=== PATIENT | male | born 1975 | race Caucasian/White ===

== ENCOUNTER 2018-04-16 08:41 | Emergency (ER) | payer OTHER ==
[2018-04-16 09:14] VITALS: TEMP 99.3
[2018-04-16 11:01] VITALS: RESP 18
--- NOTE | 2018-04-16 11:42 | ED PDOC ---
Arrival/HPI - General Chief Complaint: Upper Extremity Problem/Injury Time Seen by Provider: 04/16/18 11:22 Historian: Patient - History of Present Illness Narrative History of Present Illness (Text): 04/16/18 11:42 You were treated in the ED today for residual pain to right shoulder, right chest wall discomfort, little discomfort to right wrist s/p handcuffed by police 2 days ago, otherwise without any head injury, spine discomfort, nausea/ vomiting/headache/dizziness/difficulty breathing/chest pain/abdomen pain/ numbness/tingling/loss of limb function/pain with urination or any other complaints. Time/Duration: < week (2 days) Symptom Onset: Gradual Symptom Course: Unchanged Quality: Aching Activities at Onset: Other (handcuffed) Context: Other (handcuffed by [employer]) Past Medical History - Provider Review Nursing Documentation Reviewed: Yes - Infectious Disease Hx of Infectious Diseases: None - Cardiac Hx Cardiac Disorders: No - Psychiatric Hx Substance Use: Yes - Anesthesia Hx Anesthesia: No Family/Social History - Physician Review Nursing Documentation Reviewed: Yes Family/Social History: No Known Family HX Smoking Status: Current Some Days Smoker Hx Alcohol Use: Yes Frequency of alcohol use: Socially Hx Substance Use: Yes Substance used: marijuana Allergies/Home Meds Allergies/Adverse Reactions: Allergies No Known Allergies Allergy (Verified 04/16/18 09:14) Review of Systems - Physician Review All systems were reviewed & negative as marked: Yes - Review of Systems Constitutional: Normal Eyes: Normal ENT: Normal Respiratory: Normal Cardiovascular: Other (right rib wall discomfort) Gastrointestinal: Normal. absent: Abdominal Pain, Diarrhea, Nausea, Vomiting Genitourinary Male: Normal. absent: Dysuria Musculoskeletal: Other (right shoulder and right wrist discomfort). absent: Back Pain Skin: Normal Neurological: Normal. absent: Dizziness Endocrine: Normal Hemo/Lymphatic: Normal Psychiatric: Normal Physical Exam Vital Signs Reviewed: Yes Vital Signs Temp Pulse Resp BP Pulse Ox 04/16/18 14:14 74 18 125/70 97 04/16/18 12:29 81 18 128/79 97 04/16/18 11:00 89 18 132/86 97 04/16/18 09:10 99.3 F 96 H 16 135/91 H 98 Temperature: Afebrile Blood Pressure: Hypertensive Pulse: Tachycardic Respiratory Rate: Normal Appearance: Positive for: Well-Appearing, Non-Toxic, Comfortable Pain Distress: None Mental Status: Positive for: Alert and Oriented X 3 - Systems Exam Head: Present: Atraumatic, Normocephalic Pupils: Present: PERRL Extroacular Muscles: Present: EOMI Conjunctiva: Present: Normal Mouth: Present: Moist Mucous Membranes Neck: Present: Normal Range of Motion Respiratory/Chest: Present: Clear to Auscultation, Good Air Exchange. No: Respiratory Distress, Accessory Muscle Use Cardiovascular: Present: Regular Rate and Rhythm, Normal S1, S2, Other (Right chest wall discomfort). No: Murmurs Abdomen: No: Tenderness, Distention, Peritoneal Signs Back: Present: Normal Inspection. No: Midline Tenderness, Paraspinal Tenderness Upper Extremity: Present: Tenderness (right shoulder tenderness otherwise no tenderness to remaining part of the hand. ). No: Cyanosis, Edema Lower Extremity: Present: Normal Inspection. No: Edema Neurological: Present: GCS=15, CN II-XII Intact, Speech Normal Skin: Present: Warm, Dry, Normal Color. No: Rashes Psychiatric: Present: Alert, Oriented x 3, Normal Insight, Normal Concentration Medical Decision Making ED Course and Treatment: 04/16/18 11:36 Impression: You were treated in the ED today for residual pain to right shoulder, right chest wall discomfort, little discomfort to right wrist s/p handcuffed by police 2 days ago, otherwise without any head injury, spine discomfort, nausea/ vomiting/headache/dizziness/difficulty breathing/chest pain/abdomen pain/ numbness/tingling/loss of limb function/pain with urination or any other complaints. You were otherwise breathing easily, smiling, good strength/ sensation, walking easily, clear lungs, no abdomen tenderness, right shoulder/ right chest wall discomfort, no tenderness to right wrist/hand and otherwise warm/sensation/pink/good cap refill/good radial pulses, but no fever temp 99.3, mild tachycardia 96 , stable breathing rate 16, excellent oxygen level 98 % room air, elevated blood pressure 135/91 which we recommend repeat in 2-3 days primary care office to determine further treatment, right shoulder xray no evidence of acute fracture or dislocation, rib series unremarkable, motrin, observation done in the ED with improvement, had a long discussion and you didn' t want any xrays of the right hand/wrist or any other area, counselled to rest and use heating pads for muscle relief and thus discharged home. 1. Recommend tylenol or motrin as directed for mild pain. 2. Recommend flexeril as directed for muscle breakthrough pain and don't work/drive/drink alcohol when using. 3. 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 4. If any worsening pain, fever, chills, nausea, vomiting, difficulty breathing, numbness , loss of limb function, pain with urination or any medical condition then return to the ED. Progress Note: 04/16/18 13:29 X-ray of right shoulder reviewed by radiologist, shows: FINDINGS: BONES: No evidence of acute displaced fracture nor dislocation. The osseous structures appear intact. JOINTS: Mild degenerative osteoarthritis right acromioclavicular and to a lesser degree right glenohumeral joints. . SOFT TISSUES: Normal. OTHER FINDINGS: None. IMPRESSION: No evidence of acute displaced fracture nor dislocation. Minor degenerative osteoarthritis as above 04/16/18 13:56 X-ray of Ribs reviewed by radiologist, shows: FINDINGS: RIGHT RIBS: No fracture or focal lesion visualized. LUNGS: Clear. PLEURA: No pneumothorax or pleural fluid. CARDIOVASCULAR: Normal sized heart. No pulmonary vascular congestion. OTHER FINDINGS: None. IMPRESSION: Unremarkable radiographs of the chest and right ribs. No right rib fracture. 04/16/18 14:21 Reassessment Condition: Re-examined, Improved - RAD Interpretation Radiology Orders: 04/16/18 11:35 SHOULDER RIGHT [RAD] Stat 04/16/18 11:36 RIBS RIGHT & PA CHEST [RAD] Stat Peripheral Equipment Operator: Radiologist - Medication Orders Current Medication Orders: Discontinued Medications Ibuprofen (Motrin Tab) 800 mg PO STAT STA Stop: 04/16/18 11:38 Last Admin: 04/16/18 11:53 Dose: 800 mg - Scribe Statement The provider has reviewed the documentation as recorded by the Scribe Jenifer Perry. All medical record entries made by the Scribe were at my direction and personally dictated by me. I have reviewed the chart and agree that the record accurately reflects my personal performance of the history, physical exam, medical decision making, and the department course for this patient. I have also personally directed, reviewed, and agree with the discharge instructions and disposition. Disposition/Present on Arrival - Present on Arrival Any Indicators Present on Arrival: No History of DVT/PE: No History of Uncontrolled Diabetes: No Urinary Catheter: No History of Decub. Ulcer: No History Surgical Site Infection Following: None - Disposition Have Diagnosis and Disposition been Completed?: Yes Diagnosis: Right shoulder pain, Muscle pain Disposition: HOME/ ROUTINE Disposition Time: 14:25 Patient Plan: Discharge Condition: IMPROVED Discharge Instructions (ExitCare): Muscle and Bone Pain (DC), Shoulder Pain (DC ) Additional Instructions: You were treated in the ED today for residual pain to right shoulder, right chest wall discomfort, little discomfort to right wrist s/p handcuffed by police 2 days ago, otherwise without any head injury, spine discomfort, nausea/ vomiting/headache/dizziness/difficulty breathing/chest pain/abdomen pain/ numbness/tingling/loss of limb function/pain with urination or any other complaints. You were otherwise breathing easily, smiling, good strength/ sensation, walking easily, clear lungs, no abdomen tenderness, right shoulder/ right chest wall discomfort, no tenderness to right wrist/hand and otherwise warm/sensation/pink/good cap refill/good radial pulses, but no fever temp 99.3, mild tachycardia 96 , stable breathing rate 16, excellent oxygen level 98 % room air, elevated blood pressure 135/91 which we recommend repeat in 2-3 days primary care office to determine further treatment, right shoulder xray no evidence of acute fracture or dislocation, rib series unremarkable, motrin, observation done in the ED with improvement, had a long discussion and you didn' t want any xrays of the right hand/wrist or any other area, counselled to rest and use heating pads for muscle relief and thus discharged home. 1. Recommend tylenol or motrin as directed for mild pain. 2. Recommend flexeril as directed for muscle breakthrough pain and don't work/drive/drink alcohol when using. 3. 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 4. If any worsening pain, fever, chills, nausea, vomiting, difficulty breathing, numbness , loss of limb function, pain with urination or any medical condition then return to the ED. Prescriptions: Cyclobenzaprine [Cyclobenzaprine HCl] 10 mg PO Q8 PRN 5 Days #15 tab PRN Reason: breakthrough pain Ibuprofen [Motrin Tab] 800 mg PO Q8 PRN 10 Days #30 tab PRN Reason: Pain, Mild (1-3) Forms: [employer] (Kenyan)
--- NOTE | 2018-04-16 13:03 | RAD ---
PROCEDURE: Right shoulder dated 04/16/2018 HISTORY: 43M, right shoulder injury COMPARISON: No prior. FINDINGS: BONES: No evidence of acute displaced fracture nor dislocation. The osseous structures appear intact. JOINTS: Mild degenerative osteoarthritis right acromioclavicular and to a lesser degree right glenohumeral joints. . SOFT TISSUES: Normal. OTHER FINDINGS: None. IMPRESSION: No evidence of acute displaced fracture nor dislocation. Minor degenerative osteoarthritis as above
--- NOTE | 2018-04-16 13:50 | RAD ---
PROCEDURE: Radiographs of the Chest and Right Ribs. HISTORY: 43 year old M, with right rib discomfort COMPARISON: None available. TECHNIQUE: Frontal radiograph of the chest and multiple oblique radiographs of the right ribs were obtained. FINDINGS: RIGHT RIBS: No fracture or focal lesion visualized. LUNGS: Clear. PLEURA: No pneumothorax or pleural fluid. CARDIOVASCULAR: Normal sized heart. No pulmonary vascular congestion. OTHER FINDINGS: None. IMPRESSION: Unremarkable radiographs of the chest and right ribs. No right rib fracture.
[2018-04-16 14:46] VITALS: BP 122/78; PULSE 76; O2SAT 98
== END 2018-04-16 14:45 | disposition home or self-care (01) ==
LOC: MERGE 08:41 → ED 08:41
DX: M79.1 Myalgia (principal); M25.511 Pain in right shoulder; F17.200 Nicotine dependence, unspecified, uncomplicated

== ENCOUNTER 2018-06-12 12:50 | Emergency (ER) | payer OTHER ==
[2018-06-12 12:55] VITALS: BMI 23.0
[2018-06-12 12:58] VITALS: BP 124/77; PULSE 88; RESP 18; TEMP 98.2; O2SAT 97
--- NOTE | 2018-06-12 13:18 | ED PDOC ---
Arrival/HPI - General Chief Complaint: Wound Check Time Seen by Provider: 06/12/18 13:00 Historian: Patient - History of Present Illness Narrative History of Present Illness (Text): 06/12/18 13:01 43 y/o male, no significant, pmh, nkda, c/o lt. hand 2nd digit wound evaluation s/p suture at [facility] about 9-10 days ago. Pt. stated that he has no fever or chills, been covering with bandaid daily which causing the wound to be moist and skin soaked to pale white color on the edges, sutures remained, scheduled to see the hand specialist tomorrow from [place], no other medical or psychological complaints. Past Medical History - Provider Review Nursing Documentation Reviewed: Yes - Infectious Disease Hx of Infectious Diseases: None - Cardiac Hx Cardiac Disorders: No - Psychiatric Hx Substance Use: Yes - Anesthesia Hx Anesthesia: No Family/Social History - Physician Review Nursing Documentation Reviewed: Yes Family/Social History: Unknown Family HX Smoking Status: Current Some Days Smoker Hx Alcohol Use: Yes Hx Substance Use: Yes Substance used: marijuana Allergies/Home Meds Allergies/Adverse Reactions: Allergies No Known Allergies Allergy (Verified 04/16/18 09:14) Home Medications: Home Meds Medication Instructions Recorded Confirmed No Known Home Med 06/12/18 06/12/18 Review of Systems - Review of Systems Constitutional: absent: Fatigue, Fevers Eyes: absent: Vision Changes ENT: absent: Hearing Changes Respiratory: absent: SOB, Cough Cardiovascular: absent: Chest Pain Gastrointestinal: absent: Abdominal Pain, Nausea, Vomiting Musculoskeletal: absent: Arthralgias, Back Pain Skin: Rash. absent: Pruritis, Skin Lesions, Laceration, Abscess, Ulcer, Cellulitis Neurological: absent: Headache, Dizziness Psychiatric: absent: Anxiety, Depression Physical Exam Vital Signs Reviewed: Yes Vital Signs Temp Pulse Resp BP Pulse Ox 06/12/18 12:57 98.2 F 88 18 124/77 97 Temperature: Afebrile Blood Pressure: Normal Pulse: Regular Respiratory Rate: Normal Appearance: Positive for: Well-Appearing, Non-Toxic, Comfortable Pain Distress: None Mental Status: Positive for: Alert and Oriented X 3 - Systems Exam Head: Present: Atraumatic, Normocephalic Pupils: Present: PERRL Extroacular Muscles: Present: EOMI Conjunctiva: Present: Normal Mouth: Present: Moist Mucous Membranes Neck: Present: Normal Range of Motion Respiratory/Chest: Present: Clear to Auscultation, Good Air Exchange. No: Respiratory Distress, Accessory Muscle Use Cardiovascular: Present: Regular Rate and Rhythm, Normal S1, S2. No: Murmurs Abdomen: No: Tenderness, Distention, Peritoneal Signs Back: Present: Normal Inspection Upper Extremity: Present: Normal Inspection, Other (Lt. hand 2nd digit digit dorsum proximal phalanx: visible perpendicular laceration with visible 4 sutures nylon over the moist pale white skin wound, painful flexion of the 2nd PIPJ and and MCPJ, no difficulty extending the finger, no sausage finger, negative karnival signs, no tendon tenderness, neurovascular intact. ). No: Cyanosis, Edema Lower Extremity: Present: Normal Inspection. No: Edema Neurological: Present: GCS=15, CN II-XII Intact, Speech Normal Skin: Present: Warm, Dry, Normal Color. No: Rashes Psychiatric: Present: Alert, Oriented x 3, Normal Insight, Normal Concentration Medical Decision Making ED Course and Treatment: 06/12/18 13:19 -Wound healing well but not dry, not completely healed, too early to take out the stiches, scheduled to see the hand specialist tomorrow -Discharge home with education on keep the dressing open at night, follow up with your hand specialist tomorrow and pmd within 2 days, return to the ER for any new or worsening signs or symptoms. - PA / MOLD MAKER / Resident Statement / has reviewed & agrees with the documentation as recorded. Disposition/Present on Arrival - Present on Arrival Any Indicators Present on Arrival: No History of DVT/PE: No History of Uncontrolled Diabetes: No Urinary Catheter: No History of Decub. Ulcer: No History Surgical Site Infection Following: None - Disposition Have Diagnosis and Disposition been Completed?: Yes Diagnosis: Visit for wound check Disposition: HOME/ ROUTINE Disposition Time: 13:21 Patient Plan: Discharge Condition: GOOD Additional Instructions: -Discharge home with education on keep the dressing open at night, follow up with your hand specialist tomorrow and pmd within 2 days, return to the ER for any new or worsening signs or symptoms. Referrals: Zeyad Buck DO [Staff Provider] - Follow up with primary Forms: WORK NOTE
== END 2018-06-12 13:40 | disposition home or self-care (01) ==
LOC: ED 12:50
DX: Z48.00 Encounter for change or removal of nonsurgical wound dressing (principal)